=== PATIENT | male | born 1965 | race Asian ===

== ENCOUNTER 2018-02-08 17:25 | Emergency (ER) | payer MEDICARE, OTHER ==
[~2018-02-08] VITALS: Ht 162.6 cm; Wt 90.9 kg
[~2018-02-08 17:25] MED LIST: BENZ1TAB10 PO; DIPH50 PO; DOCU250C91 PO; LITH300C3 PO; OLAN10TA3 PO; PALI156D IM; ZOLP10TA7 PO
[2018-02-08] MEDS ORDERED: PERTUSS(ACELL),DIPH,TET VAC/PF 0.5 ML VIAL IM ONE (17:30)
[2018-02-08] MEDS ORDERED: CeFAZolin 1 GM/DEXTROSE 50 ML IV ONE (17:30)
[2018-02-08 17:33] VITALS: BP 115/55
[2018-02-08 17:42] LABS: GLUCOSE,POINT OF CARE 129 MG/DL (70-110)
[2018-02-08] MEDS ORDERED: CeFAZolin SODIUM 1 GM in DEXTROSE 5%-WATER 10 ML IV ONE (17:45)
== END 2018-02-08 17:54 | disposition short-term general hospital (02) ==
LOC: EMS 17:26
DX: S21.112A Laceration without foreign body of left front wall of thorax without penetration into thoracic cavity, initial encounter (principal); F41.9 Anxiety disorder, unspecified; R10.9 Unspecified abdominal pain; F17.210 Nicotine dependence, cigarettes, uncomplicated; W25.XXXA Contact with sharp glass, initial encounter; Y93.89 Activity, other specified; Y92.89 Other specified places as the place of occurrence of the external cause; Y99.8 Other external cause status
CPT/HCPCS: 71045; 82962; 90471; 90715; 96374; 99285; J0690; J7060

== ENCOUNTER 2023-06-13 15:28 | Emergency (ER) | payer MEDICARE, OTHER ==
[~2023-06-13] VITALS: Ht 175.3 cm; Wt 79.5 kg
[~2023-06-13 15:28] MED LIST changes: -BENZ1TAB10 PO; +BENZ1TAB84 PO; +DOCU-350 PO; -DOCU250C91 PO; -OLAN10TA3 PO; +OLAN10TA74 PO; +ZOLP-162 PO; -ZOLP10TA7 PO
[2023-06-13 15:31] VITALS: TEMP 97.8
[2023-06-13 18:15] VITALS: BP 111/74; PULSE 66; RESP 15
== END 2023-06-13 19:30 | disposition home or self-care (01) ==
LOC: EMS 15:29
DX: T18.2XXA Foreign body in stomach, initial encounter (principal); F17.210 Nicotine dependence, cigarettes, uncomplicated; W45.8XXA Other foreign body or object entering through skin, initial encounter; Y93.89 Activity, other specified; Y92.89 Other specified places as the place of occurrence of the external cause; Y99.8 Other external cause status
CPT/HCPCS: 74022; 99283

== ENCOUNTER 2023-08-08 12:50 | Emergency (ER) | payer MEDICARE, OTHER ==
[~2023-08-08] VITALS: Ht 177.8 cm; Wt 81.8 kg
[~2023-08-08 12:50] MED LIST changes: -DOCU-350 PO; +DOCU-412 PO; +LIDOCAINE/PF 2% 5 ML VIAL IM ONE; -LITH300C3 PO; -PALI156D IM; +PROPOFOL 1% 20 ML VIAL IVP ONE
[2023-08-08 14:13] LABS: BASOPHILS % (AUTO) 0.5 % (0.0-2.0); EOSINOPHILS % (AUTO) 0.5 % (1.0-6.0); HEMATOCRIT 46.9 % (41-53); HEMOGLOBIN 15.6 g/dL (13.5-17.5); LYMPHOCYTES # (AUTO) 1.3 K/uL (1.0-4.8); LYMPHOCYTES % (AUTO) 7.8 % (22.0-44.0); MEAN CORPUSCULAR HEMOGLOBIN 30.4 pg (26.0-34.0); MEAN CORPUSCULAR HGB CONC 33.3 G/dL (31.0-37.0); MEAN CORPUSCULAR VOLUME 91 fL (80-100); MONOCYTES # (AUTO) 1.4 K/uL (0.1-1.0); MONOCYTES % (AUTO) 8.8 % (2.0-9.0); NEUTROPHILS # (AUTO) 13.4 K/uL (1.8-7.7); NEUTROPHILS % (AUTO) 82.4 % (40.0-70.0); PLATELET COUNT (AUTO) 189 K/uL (150-450); RED BLOOD CELL COUNT(AUTO) 5.13 MIL/uL (4.50-5.90); RED CELL DISTRIBUTION WIDTH 14.7 % (11.5-14.5); WHITE BLOOD COUNT (AUTO) 16.3 K/uL (4.5-11.0)
[2023-08-08 14:20] LABS: ANION GAP 17 mmol/L (8-16); CALCIUM, TOTAL 9.1 mg/dL (8.8-10.5); CARBON DIOXIDE 23 mmol/L (22-29); CHLORIDE 97 mmol/L (98-107); CREATININE 1.13 mg/dL (0.60-1.30); GLOMERULAR FILTR. RATE CALC > 60 mL/min (>60); GLUCOSE,RANDOM 103 mg/dL (70-110); POTASSIUM 4.1 mmol/L (3.5-5.1); SODIUM SERUM 137 mmol/L (136-145); UREA NITROGEN, BLOOD 15 mg/dL (7-18)
[2023-08-08 14:26] LABS: ALANINE AMINOTRANSFERASE 12 U/L (12-78); ALBUMIN 3.7 g/dL (3.4-5.0); ALKALINE PHOSPHATASE 100 U/L (46-116); ASPARTATE AMINOTRANSFERASE 15 U/L (15-37); BILIRUBIN,TOTAL 0.8 mg/dL (0.1-1.0); TOTAL PROTEIN, SERUM 7.8 g/dL (6.4-8.2)
[2023-08-08] MEDS ORDERED: SODIUM CHLORIDE 0.9% 1,000 ML ONE (15:01)
[2023-08-08] MEDS ORDERED: SODIUM CHLORIDE 0.45% 1,000 ML IV ONE (16:30)
[2023-08-08 20:54] VITALS: BP 124/71; PULSE 71; RESP 18; TEMP 98.3
== END 2023-08-08 21:00 | disposition short-term general hospital (02) ==
LOC: EMS 12:57
DX: T18.2XXA Foreign body in stomach, initial encounter (principal); F41.9 Anxiety disorder, unspecified; F17.210 Nicotine dependence, cigarettes, uncomplicated
CPT/HCPCS: 43247; 99285; 71250; 80053; 85025; 36415; 72192; 74150; C1769; J2704; J3490; J7030 ×2